=== PATIENT | female | born 2000 | race African-American/Black ===

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

== ENCOUNTER 2018-03-26 05:00 | Emergency (ER) | payer BC ==
[~2018-03-26] VITALS: Ht 170.2 cm; Wt 81.7 kg
[~2018-03-26 05:00] MED LIST: SPRINTEC1 EACH PO
[2018-03-26 05:42] LABS: AMP/METHAMP Negative (Negative); BARBITURATES Negative (Negative); BENZODIAZEPINES Negative (Negative); COCAINE Negative (Negative); METHADONE Negative (Negative); OPIATES Negative (Negative); PCP Negative (Negative)
[2018-03-26 06:24] VITALS: BP 117/71
== END 2018-03-26 06:25 | disposition home or self-care (01) ==
LOC: ER 05:00
PROVIDERS: Emergency Medicine
DX: R51 Headache (principal); J45.909 Unspecified asthma, uncomplicated; Z86.2 Personal history of diseases of the blood and blood-forming organs and certain disorders involving the immune mechanism

== ENCOUNTER 2019-09-29 15:28 | Emergency (ER) | payer BC ==
[~2019-09-29] VITALS: Ht 170.2 cm; Wt 90.3 kg
[2019-09-29] MEDS ORDERED: DULOXETINE HCL60 MG PO (15:42)
[2019-09-29 16:15] LABS: ABSOLUTE NEUTROPHILS 5.6 thou/uL (1.4-8.2); BASOPHILS 0.3 % (0.0-2.0); EOSINOPHILS 2.1 % (0.0-3.0); HEMATOCRIT 41.2 % (37.0-47.0); HEMOGLOBIN 14.3 gm/dL (12.0-15.0); LYMPHOCYTES 18.5 % (24.0-44.0); MCH 31.8 pg (26.0-34.0); MCHC 34.6 g/dL (28.0-37.0); MCV 91.8 fL (80.0-100.0); MONOCYTES 4.7 % (1.0-8.0); PLATELET COUNT 292 thou/uL (150-400); POLYS 74.4 % (36.0-66.0); RBC 4.48 mil/uL (4.20-5.00); RDW 12.3 % (10.5-14.5); WBC 7.6 thou/uL (4.0-11.0)
[2019-09-29 16:21] LABS: POTASSIUM 3.7 mmol/L (3.5-5.1)
[2019-09-29 16:28] LABS: ALBUMIN 4.4 g/dL (3.4-5.0); TOTAL BILIRUBIN 0.9 mg/dL (<0.1-1.0); TOTAL PROTEIN 8.2 g/dL (6.4-8.2)
[2019-09-29] MEDS ORDERED: PHENERGAN 25 MG25 M1 PO (17:58)
[2019-09-29 18:39] VITALS: BP 113/68
== END 2019-09-29 18:39 | disposition home or self-care (01) ==
LOC: ER 15:28
PROVIDERS: Physician Assistant
DX: R11.2 Nausea with vomiting, unspecified (principal); R63.0 Anorexia; G43.909 Migraine, unspecified, not intractable, without status migrainosus; Z79.899 Other long term (current) drug therapy

== ENCOUNTER 2021-05-07 18:57 | Emergency (ER) | payer BC ==
[~2021-05-07] VITALS: Ht 172.7 cm; Wt 97.5 kg
[~2021-05-07 18:57] MED LIST changes: +DULOXETINE HCL60 MG PO; +PHENERGAN 25 MG25 M1 PO
[2021-05-07] MEDS ORDERED: OTHER (19:07)
[2021-05-07] MEDS ORDERED: INDERAL 20 MG T20 MG PO (19:07)
[2021-05-07 21:04] LABS: ANION GAP 10 mmol/L (7-16); BUN 7 mg/dL (7-18); CALCIUM 8.8 mg/dL (8.5-10.1); CHLORIDE 104 mmol/L (98-107); CO2 27 mmol/L (21-32); CREATININE 1.1 mg/dL (0.6-1.0); GLUCOSE 97 mg/dL (74-106); POTASSIUM 3.7 mmol/L (3.5-5.1); SODIUM 141 mmol/L (136-145)
[2021-05-07 21:36] VITALS: BP 112/75
--- NOTE | 2021-05-08 10:31 | EKG ---
[place] [address] [address] [employer] [facility] [place] [address] ELECTROCARDIOGRAM REPORT Name: HUMA PERSAUD Room #: [facility] Jagdish#: [id number] Admission: 05/07/21 Attend Phys: Discharge: 05/07/21 Date of : 89 Report #: [id number] [facility] ED Test Date: 2021-05-07 Test Time: 19:03:55 Pat Name: HUMA PERSAUD Department: Room: Gender: F Industrial Recruiter: EDYTA : 2000 Requested By: Antwan Holt Order Number: [id number] MD: Kirit Hernandez Measurements Intervals [place] Rate: 84 P: 45 MN: 162 QRS: 32 QRSD: 83 T: 11 QT: 347 QTc: 411 Interpretive Statements Sinus rhythm No previous ECG available for comparison Electronically Signed On 05-08-2021 10:30:57 [employer] by Kirit Hernandez [email or web address] <ELECTRONICALLY SIGNED> By: Kirit Hernandez MD 05/08/21 1030 1903 [id number] Kirit Hernandez MD /EPI
== END 2021-05-07 21:37 | disposition home or self-care (01) ==
LOC: ER 18:57
PROVIDERS: Nurse Practitioner
DX: R07.89 Other chest pain (principal); G43.909 Migraine, unspecified, not intractable, without status migrainosus; Z79.899 Other long term (current) drug therapy